=== PATIENT | male | born 1980 | race Caucasian/White ===

== ENCOUNTER 2016-11-18 17:01 | Emergency (ER) | payer MEDICAID ==
[2016-11-18 17:06] VITALS: O2SAT 97
--- NOTE | 2016-11-18 17:44 | EDPHY ---
H & P Stated Complaint: States dysuria/hematuria since yesterday;flank pain 2 days ago ,none now HPI/ROS: Chief complaint: Urinating blood History of present illness: This is a 36-year-old male who presents to the emergency department stating he is urinating blood. Patient reports the onset of symptoms over the last 2 days. States in addition there is discomfort when he urinates. He has pain along the shaft of his penis is well. He denies precipitating factors. He denies alleviating factors. He does state approximately 2 days ago he had some right flank pain, it was fleeting in nature and is completely resolved without return of symptoms. He denies other associated signs or symptoms including no fevers, no testicular swelling or pain , no abdominal pain, no nausea, vomiting or diarrhea. Review of systems: A 10 point review of systems was obtained and other than described above was negative - Personal History Current Tetanus Diphtheria and Acellular Pertussis (TDAP): Yes Tetanus Vaccine Date: < 10 - Medical/Surgical History Hx Asthma: No Hx Chronic Respiratory Disease: No Hx Diabetes: No Hx Cardiac Disease: No Hx Renal Disease: No Hx Cirrhosis: No Hx Alcoholism: No Hx HIV/AIDS: No Hx Splenectomy or Spleen Trauma: No Other PMH: DEPRESSION, herniated disc. chronic back pain - Social History Smoking Status: Current every day smoker Additional Social History: Patient is sexually active - Physical Exam Exam: General Appearance: Alert, nontoxic. Eyes: Pupils equal and round no injection. Respiratory: Chest is nontender, lungs are clear to auscultation. Cardiac: regular rate and rhythm. Gastrointestinal: Abdomen is soft and nontender, no masses, bowel sounds normal. Genitourinary: No urethral discharge. The shaft of the penis is unremarkable. The scrotum is unremarkable. The testicles and surrounding cord structures are nontender without edema. No hernias appreciated. No CVA tenderness. Musculoskeletal: Neck is supple and nontender. Extremities have full range of motion and are nontender. Skin: No rashes or lesions. Constitutional: Initial Vital Signs Temperature (C) 36.7 C 11/18/16 17:04 Heart Rate 102 H 11/18/16 17:04 Respiratory Rate 18 11/18/16 17:04 Blood Pressure 131/102 H 11/18/16 17:04 O2 Sat (%) 97 11/18/16 17:04 O2 Delivery Mode Room Air Allergies/Adverse Reactions: amoxicillin [Amoxicillin] Allergy (Unknown, Verified 11/18/16 17:07) Rash Home Medications: Medication Instructions Recorded Doxycycline Hyclate [Vibramycin 100 mg PO BID 7 Days 11/18/16 100 MG (*)] Medical Decision Making ED Course/Re-evaluation: Patient seen under the supervision of my secondary supervising physician Dr. Ata Baca. Patient presents to the emergency department with hematuria, dysuria and penile discomfort. He did have a fleeting episode of flank pain a few days ago that resolved. He is nontoxic. Urinalysis is concerning for infection. The CBC and chemistry are unremarkable. I am concerned for a urethritis. Patient is sexually active. I will treat with Rocephin and doxycycline. He does not report is severe penicillin allergy. GC and chlamydia cultures have been ordered. I did talk to him about potential kidney stone given his flank pain and offered a CT scan to evaluate for this, he declined. Patient is asked to follow up with a primary care doctor for recheck. I have also discussed full STD testing as we will only test for GC and Chlamydia. He is given referral information. Strict return precautions were given. Patient voiced understanding and agreement with plan. Differential Diagnosis: Included but not limited to urethritis, urinary tract infection of other etiologies, kidney stone, kidney problems - Data Points Laboratory Results: Laboratory Results 11/18/16 18:10 11/18/16 18:10 11/18/16 11/18/16 11/18/16 18:10 18:10 17:40 WBC 8.39 10^3/uL 10^3/uL (3.80-9.50) RBC 5.69 10^6/uL 10^6/uL (4.40-6.38) Hgb 17.0 g/dL g/dL (13.7-17.5) Hct 51.1 % H % (40.0-51.0) MCV 89.8 fL fL (81.5-99.8) MCH 29.9 pg pg (27.9-34.1) MCHC 33.3 g/dL g/dL (32.4-36.7) RDW 12.4 % % (11.5-15.2) Plt Count 323 10^3/uL 10^3/uL (150-400) MPV 9.7 fL fL (8.7-11.7) Neut % (Auto) 59.5 % % (39.3-74.2) Lymph % (Auto) 30.6 % % (15.0-45.0) [place] % (Auto) 7.3 % % (4.5-13.0) Eos % (Auto) 1.5 % % (0.6-7.6) Baso % (Auto) 1.0 % % (0.3-1.7) Nucleat RBC Rel Count 0.0 % % (0.0-0.2) Absolute Neuts (auto) 4.99 10^3/uL 10^3/uL (1.70-6.50) Absolute Lymphs (auto) 2.57 10^3/uL 10^3/uL (1.00-3.00) Absolute Monos (auto) 0.61 10^3/uL 10^3/uL (0.30-0.80) Absolute Eos (auto) 0.13 10^3/uL 10^3/uL (0.03-0.40) Absolute Basos (auto) 0.08 10^3/uL 10^3/uL (0.02-0.10) Absolute Nucleated RBC 0.00 10^3/uL 10^3/uL (0-0.01) Immature Gran % 0.1 % % (0.0-1.1) Immature Gran # 0.01 10^3/uL 10^3/uL (0.00-0.10) Sodium 140 mEq/L mEq/L (134-144) Potassium 4.9 mEq/L mEq/L (3.5-5.2) Chloride 103 mEq/L mEq/L (97-110) Carbon Dioxide 26 mEq/l mEq/l (22-31) Anion Gap 11 mEq/L mEq/L (8-16) BUN 14 mg/dL mg/dL (7-23) Creatinine 0.8 mg/dL mg/dL (0.7-1.3) Estimated GFR > 60 Glucose 95 mg/dL mg/dL (70-100) Calcium 10.4 mg/dL mg/dL (8.5-10.4) Urine Color YELLOW Urine Appearance HAZY Urine pH 5.0 (5.0-7.5) Ur Specific [place] 1.025 (1.002-1.030) Urine Protein 1+ H (NEGATIVE) Urine Ketones NEGATIVE (NEGATIVE) Urine Blood 3+ H (NEGATIVE) Urine Nitrate NEGATIVE (NEGATIVE) Urine Bilirubin NEGATIVE (NEGATIVE) Urine Urobilinogen NEGATIVE EU EU (0.2-1.0) Ur Leukocyte Esterase TRACE H (NEGATIVE) Urine RBC 50-182 /hpf H /hpf (0-3) Urine WBC 15-25 /hpf H /hpf (0-3) Ur Epithelial Cells NONE SEEN /lpf /lpf (NONE-1+) Urine Bacteria TRACE /hpf H /hpf (NONE SEEN) Urine Mucus TRACE /lpf /lpf (NONE-1+) Ur Culture Indicated? INDICATED H (NI) Urine Glucose NEGATIVE (NEGATIVE) Medications Given: Discontinued Medications Doxycycline Hyclate (Doxycycline Hyclate) 100 mg PO EDNOW ONE PRN Reason: Protocol Stop: 11/18/16 19:08 Last Admin: 11/18/16 19:12 Dose: 100 mg Departure - Departure Disposition: Home, Routine, Self-Care Clinical Impression: Urinary tract infection Qualifiers: Urinary tract infection type: urethritis Qualified Code(s): N34.2 - Other urethritis Condition: Good Instructions: Urinary Tract Infection in Men (ED) Additional Instructions: Follow-up with the primary care doctor for recheck We recommend you follow up with a primary care doctor as well for full STD testing Take all antibiotics as prescribed until finished even feeling better You were offered a CT scan today, you declined If symptoms worsen or new symptoms develop return to the emergency department for recheck Referrals: NONE *PRIMARY CARE P,. [Primary Care Provider] - As per Instructions [facility] [Outside] - As per Instructions Prescriptions: Doxycycline Hyclate [Vibramycin 100 MG (*)] 100 mg PO BID 7 Days
[2016-11-18 17:52] LABS: COLOR YELLOW; LEUKOCYTE ESTERASE,URINE TRACE (NEGATIVE); NITRITE,URINE NEGATIVE (NEGATIVE)
[2016-11-18 18:18] LABS: BACTERIA TRACE /hpf (NONE SEEN); MUCUS TRACE /lpf (NONE-1+); RBC,URINE 50-182 /hpf (0-3); WBC,URINE 15-25 /hpf (0-3)
[2016-11-18 18:40] LABS: % IMMATURE GRANULYOCYTES 0.1 % (0.0-1.1); ABSOLUTE IMMATURE GRANULOCYTES 0.01 10^3/uL (0.00-0.10); ADD DIFF? NO; ADD MORPH? NO; ADD SCAN? NO; ATYPICAL LYMPHOCYTE FLAG 40 (0-99); FRAGMENT RBC FLAG 0 (0-99); HEMATOCRIT 51.1 % (40.0-51.0); LEFT SHIFT FLG 0 (0-99); LIPEMIA HEMOLYSIS FLAG 80 (0-99); MEAN CELL HEMOGLOBIN 29.9 pg (27.9-34.1); MEAN CELL HEMOGLOBIN CONCENTR. 33.3 g/dL (32.4-36.7); MEAN CELL VOLUME 89.8 fL (81.5-99.8); MEAN PLATELET VOLUME 9.7 fL (8.7-11.7); PLATELET CLUMPS FLAG 10 (0-99); PLATELET COUNT 323 10^3/uL (150-400); RED BLOOD CELL COUNT 5.69 10^6/uL (4.40-6.38); RED CELL DISTRIBUTION WIDTH 12.4 % (11.5-15.2)
[2016-11-18 18:54] LABS: ANION GAP 11 mEq/L (8-16); CALCIUM 10.4 mg/dL (8.5-10.4); CARBON DIOXIDE 26 mEq/l (22-31); CHLORIDE 103 mEq/L (97-110); CREATININE 0.8 mg/dL (0.7-1.3); GLOMERULAR FILTRATION RATE > 60; GLUCOSE 95 mg/dL (70-100); POTASSIUM 4.9 mEq/L (3.5-5.2); SODIUM 140 mEq/L (134-144)
[2016-11-18] MEDS ORDERED: CEFTRIAXONE IM 350 MG/ML SYRINGE IM ONE ×2 (19:07→19:30)
[2016-11-18] MEDS ORDERED: DOXYCYCLINE HYCLATE 100 MG CAP/TAB PO ONE (19:07)
[2016-11-18 19:36] VITALS: BP 130/87; PULSE 88; RESP 16; TEMP 97.9
[2016-11-19 14:20] LABS: CHLAMYDIA AMPLIFICATION GENPRB NEGATIVE (NEGATIVE)
== END 2016-11-18 19:36 | disposition home or self-care (01) ==
DX: N34.2 Other urethritis (principal); B95.1 Streptococcus, group B, as the cause of diseases classified elsewhere; F17.200 Nicotine dependence, unspecified, uncomplicated
CPT/HCPCS: J0696

== ENCOUNTER 2016-11-28 11:42 | Emergency (ER) | payer MEDICAID ==
--- NOTE | 2016-11-28 12:57 | EDPHY ---
H & P Stated Complaint: urinary retention since this morning Source: Patient Exam Limitations: No limitations - Personal History Current Tetanus/Diphtheria Vaccine: Yes Tetanus Vaccine Date: < 10 - Medical/Surgical History Hx Asthma: No Hx Chronic Respiratory Disease: No Hx Diabetes: No Hx Cardiac Disease: No Hx Renal Disease: No Hx Cirrhosis: No Hx Alcoholism: No Hx HIV/AIDS: No Hx Splenectomy or Spleen Trauma: No Other PMH: DEPRESSION, herniated disc. chronic back pain - Social History Smoking Status: Current every day smoker Time Seen by Provider: 11/28/16 12:05 HPI/ROS: CHIEF COMPLAINT: penile pain, difficulty urinating HISTORY OF PRESENT ILLNESS: 36-year-old male presents emergency department complaining of difficulty urinating. Patient reports he feels something stuck in his penis. Patient reports it was a base of his penis yesterday and his moved down to the tip of his penis. Patient was seen in the emergency department 10 days ago for hematuria, he refused to CT scan at that time, has no history of kidney stones. He did have flank pain a few days prior to this emergency department visit. Urinalysis at that time showed 50-182 RBCs and 15- 25 WBCs. Patient was treated with IM Rocephin and a course of doxycycline. Chlamydia and gonorrhea were negative. Patient reports he did finish this course of antibiotics. He denies nausea, vomiting, diarrhea, no abdominal pain. Patient reports pressure in his bladder and feels like he is just dribbling urine. He denies flank pain. REVIEW OF SYSTEMS: A comprehensive 10 point review of systems is otherwise negative aside from elements mentioned in the history of present illness. (Maribell Cosby) - Physical Exam Exam: Physical Exam Gen: Alert and Oriented, NAD HEENT: PERRL, moist mucous membranes NECK: no meningismus CV: regular rate and regular rhythm PULM: CTAB, no wheezes ABDOMEN: soft, non tender to palpation, BS present : Normal exam, no penile discharge, no lesions, no erythema or swelling to penis or scrotum BACK: No CVA tenderness NEURO: Neurologically grossly intact EXTREMITIES: normal appearing SKIN: no rash or break in skin on exposed skin PSYCH: answers questions appropriately. (Maribell Cosby) Constitutional: Initial Vital Signs Temperature (C) 36.4 C 11/28/16 11:51 Heart Rate 86 11/28/16 11:51 Respiratory Rate 16 11/28/16 11:51 Blood Pressure 114/75 11/28/16 11:51 O2 Sat (%) 99 11/28/16 11:51 O2 Delivery Mode Room Air Allergies/Adverse Reactions: amoxicillin [Amoxicillin] Allergy (Unknown, Verified 11/28/16 11:51) Rash Home Medications: Medication Instructions Recorded NK [No Known Home Meds] 11/28/16 Medical Decision Making - Diagnostics Imaging: CT KUB- Impression: 1. No nephrolithiasis or hydronephrosis. 2. 12 x 9 mm distal penile urethral calculus. Attention: This CT examination is specifically designed to evaluate patients who are clinically suspected of having acute obstructive uropathy. This examination does not use radiographic contrast , and as such, provides only a limited evaluation of the abdomen, pelvis and retroperitoneum. If there is further clinical suspicion for pathological conditions other than obstructive uropathy, a complete CT evaluation of the abdomen and pelvis utilizing intravenous, oral, and rectal contrast should be considered. Findings and recommendations discussed with Maribell Cosby NP, at 1321 hours , 11/28/2016. Final report concurs with initial preliminary interpretation. Dictated By: Herman Francisco (Maribell Cosby) ED Course/Re-evaluation: 36-year-old male presents complaining of penile pain reports he feels like there is something in his penis that is making it difficult to urinate. Urinalysis shows no blood or evidence of infection, CT KUB shows a 12 mm x 9 mm stone in his urethra 2-3 mm from exiting his penis. Your jet lidocaine jelly was placed in his urethra, stone was visualized, a sterile tweezers was used to attempt at removing this, unable to remove this. Dr. Coyle was consulted. He will see the patient in his office now. Pt is discharged to follow up in Dr. Duval office. (Maribell Cosby) Other Provider: I evaluated and participated in the management of the patient. I also evaluated the patient independently. My co-signature indicates that I have reviewed this chart and I agree with the findings and plan of care as documented. My personal H&P findings include: The patient presents to the emergency department with complaints of difficulty urinating. During the course of his workup he was noted to have a distal urethral stone. I examined the patient and found a large stone large at the very tip of his urethra. It was unable to be removed with gentle manipulation. Consultation was made with Dr. Jones from Urology who see the patient in his office this afternoon to discuss additional treatment options and likely operative intervention. (Neil Booker) - Data Points Laboratory Results: 11/28/16 12:05 Urine Color YELLOW Urine Appearance MODERATELY TURBID Urine pH 8.0 H (5.0-7.5) Ur Specific [place] 1.017 (1.002-1.030) Urine Protein NEGATIVE (NEGATIVE) Urine Ketones NEGATIVE (NEGATIVE) Urine Blood NEGATIVE (NEGATIVE) Urine Nitrate NEGATIVE (NEGATIVE) Urine Bilirubin NEGATIVE (NEGATIVE) Urine Urobilinogen NEGATIVE EU EU (0.2-1.0) Ur Leukocyte Esterase NEGATIVE (NEGATIVE) Ur Culture Indicated? NOT INDICATED (NI) Urine Glucose NEGATIVE (NEGATIVE) Departure - Departure Disposition: Home, Routine, Self-Care Clinical Impression: Urethral stone Condition: Good Instructions: Ureteral Stones (ED) Additional Instructions: Go directly to Dr. Duval office. Referrals: Yusra Coyle MD [Medical Doctor] - As per Instructions
[2016-11-28] MEDS ORDERED: LIDOCAINE 2% JELLY 20 ML (UROJECT) ONE (13:20)
[2016-11-28 13:45] LABS: COLOR YELLOW; LEUKOCYTE ESTERASE,URINE NEGATIVE (NEGATIVE); NITRITE,URINE NEGATIVE (NEGATIVE)
[2016-11-28 14:02] VITALS: BP 120/74; PULSE 76; RESP 18; TEMP 98.1; O2SAT 98
== END 2016-11-28 14:03 | disposition home or self-care (01) ==
DX: N21.1 Calculus in urethra (principal); F17.200 Nicotine dependence, unspecified, uncomplicated

== ENCOUNTER 2016-11-29 11:20 | Day surgery (SDC) | payer MEDICAID ==
[~2016-11-29 11:20] MED LIST: ceFAZolin 2 GM/DEXTROSE 100 ML IV ONE
[2016-11-29] MEDS ORDERED: CEFAZOLIN 2 GM/DEXTROSE/100 ML BAG IV ONE (14:04)
[2016-11-29] MEDS ORDERED: PROPOFOL 200 MG/20 ML VIAL ONE ×2 (14:58→15:19)
[2016-11-29] MEDS ORDERED: LIDOCAINE 2% 5 ML SDV ONE (14:58)
[2016-11-29] MEDS ORDERED: fentaNYL 100 MCG/2 ML INJ ONE ×2 (15:00→16:13)
[2016-11-29] MEDS ORDERED: MIDAZOLAM 2 MG/2 ML VIAL ONE (15:01)
--- NOTE | 2016-11-29 15:18 | POSTOPPROG ---
Post Op Note Date of Operation: 11/29/16 Surgeon: Yusra Coyle (# [id number]) Pre-op Diagnosis: Urethral calculus, urinary retention Post-op Diagnosis: Urethral calculus, urinary retention Procedure: Cysto with laser calculus lithotripsy & extraction Findings: See op note Inf/Abcess present in the surg proc area at time of surgery?: No Complications: None Specimen(s): Urethral Calculus
[2016-11-29] MEDS ORDERED: HYDROCODONE/APAP 5/325 TAB ONE (16:56)
--- NOTE | 2016-11-29 18:00 | GOP ---
DATE OF OPERATION: 11/29/2016 SURGEON: Yusra Coyle MD ANESTHESIA: Laryngeal mask. PREOPERATIVE DIAGNOSIS: Obstructing urethral calculus with urinary retention. POSTOPERATIVE DIAGNOSIS: Obstructing urethral calculus with urinary retention. PROCEDURE PERFORMED: Cystourethroscopy with holmium laser lithotripsy of urethral calculus and complicated extraction. FINDINGS: Large sized distal urethral calculus with stricturing of the fossa navicularis. Also noted was some traumatic mucosal disruption to the bulbar urethra, likely as a result of passing of the urethral calculus through this region. SPECIMENS: Urethral calculus fragments. ESTIMATED BLOOD LOSS: Less than 5 cc. INDICATIONS: This gentleman presented to my office yesterday from the emergency room with an obstructing urethral calculus. Calculus is deemed to be approximately 12 mm in diameter based on CT scan. The patient presents for operative management at this time. The indications for the procedures as well as the potential risks and complications, were discussed with the patient preoperatively. He appeared to understand, his questions were answered, and he wished to proceed. Written informed surgical consent was thereafter obtained. DESCRIPTION OF PROCEDURE: The patient was brought to the operating room and administered laryngeal mask anesthesia. He was carefully placed in the dorsal lithotomy position on the cystoscopic table. The genital area was sterilely prepped with Betadine scrub and paint, then draped in the usual sterile fashion. There was a fair amount of edema of the urethral meatus. I was unable to insert a 22-Irish cystoscopic sheath without first performing dilation with Kiya sounds up to 26-Irish. The anterior urethra otherwise revealed significant fossa navicularis narrowing, which had been addressed with the [place] sounds. Prior to insertion of the scope, I could palpate the calculus within the fossa navicularis. Upon insertion of the scope following dilation, the calculus had moved into the penile urethra. I then pushed it a little bit further back gently into the bulbar urethra to allow for easier management of the stone with the laser. The 365 micron holmium laser fiber was brought onto the field and used to fragment the calculus into several small pieces. Most of these migrated into the bladder and were removed with an Ellik evacuator and flexible grasping forceps. The remainder of cystourethroscopy revealed some significant mucosal inflammation and irritation of the membranous urethra. Prostate was not obstructing. Examination of the bladder revealed a fairly wide open right ureteral orifice with some surrounding mucosal inflammation, likely as a result of a recently spontaneously passed ureteral calculus. My presumption is that the urethral calculus originated in the right kidney and had spontaneously passed through the right ureter and into the bladder, then obstructed the urethra thereafter. The remainder of the bladder was unremarkable. Once the stone had been completely fragmented and removed, the cystoscope was removed, and a 16-Irish Sun catheter inserted without complication. 15 cc of sterile fluid was placed in the balloon. The catheter urine return at the end of the case was completely clear. The catheter was connected to bag drainage. The patient was then awakened, transferred to his bed, then taken to the recovery room. He tolerated the procedure well overall. COMPLICATIONS: None. DISPOSITION: The patient was brought to the operating room in stable condition. Instructions will be given for the patient to remove the Sun catheter in 48 hours, then return to my office as needed thereafter. /[id number]/MODL MTDD
== END 2016-11-29 17:30 | disposition home or self-care (01) ==
LOC: FSGY 11:20
PROVIDERS: ATTEND Specialist
PROC: 0TCD8ZZ Extirpation of Matter from Urethra, Via Natural or Artificial Opening Endoscopic (ICD-10-PCS; principal; 2016-11-29 13:00)
DX: N21.1 Calculus in urethra (principal); R33.9 Retention of urine, unspecified
CPT/HCPCS: 52315; C1769; 82365-90; J0690; J2250; J2704; J3010

== ENCOUNTER 2016-12-01 14:54 | Emergency (ER) | payer MEDICAID ==
[2016-12-01 15:14] VITALS: BP 126/80; PULSE 78; RESP 16; TEMP 97.9; O2SAT 100
--- NOTE | 2016-12-01 15:34 | UCPHY ---
H & P Patient Type: Established HPI/ROS: LWBS Past Medical/Surgical History: Depression, herniated disc, chronic back pain. Smoking Status: Current every day smoker Constitutional: Initial Vital Signs Temperature (C) 36.6 C 12/01/16 15:11 Heart Rate 78 12/01/16 15:11 Respiratory Rate 16 12/01/16 15:11 Blood Pressure 126/80 H 12/01/16 15:11 O2 Sat (%) 100 12/01/16 15:11 O2 Delivery Mode Room Air Allergies/Adverse Reactions: amoxicillin [Amoxicillin] Allergy (Unknown, Verified 12/01/16 15:14) Rash Home Medications: Medication Instructions Recorded NK [No Known Home Meds] 12/01/16 Departure - Departure Referrals: NONE *PRIMARY CARE P,. [Primary Care Provider] - As per Instructions - PQRS PQRS Measurement: LWBS Report Scribed for: Torrey Moore Report Scribed by: Maninder Story Date of Report: 12/01/16 Time of Report: 15:34 Physician Review and Approval Statement: 12/01/16 15:34 Portions of this note were transcribed by a medical terminologist. I personally performed a history, physical exam, medical decision making, and confirmed accuracy of information the transcribed note.
== END 2016-12-01 16:02 | disposition left against medical advice (07) ==
LOC: CED 14:54
DX: Z46.6 Encounter for fitting and adjustment of urinary device (principal); Z53.21 Procedure and treatment not carried out due to patient leaving prior to being seen by health care provider

== ENCOUNTER 2019-03-07 13:43 | Emergency (ER) | payer OTHER, MEDICAID | END 2019-03-07 14:20 | disposition home or self-care (01) ==

== ENCOUNTER 2019-03-14 17:54 | Emergency (ER) | payer OTHER, MEDICAID | END 2019-03-14 18:47 | disposition home or self-care (01) ==

== ENCOUNTER 2019-03-28 20:28 | Emergency (ER) | payer OTHER, MEDICAID | END 2019-03-28 21:30 | disposition home or self-care (01) ==